=== PATIENT | male | born 1950 | race Caucasian/White ===

== ENCOUNTER → 2020-03-09 08:07 | Outpatient (BNVA) | payer OTHER, SELFPAY | PROVIDERS: Family Provider Internal Medicine; PCP Internal Medicine; Visit Provider Psychiatry & Neurology Psychiatry | DX: F43.23 Adjustment disorder with mixed anxiety and depressed mood (principal) | CPT/HCPCS: 99204 ==

== ENCOUNTER → 2020-03-18 10:20 | Outpatient (BNVA) | payer OTHER, SELFPAY | PROVIDERS: Family Provider Internal Medicine; PCP Internal Medicine; Visit Provider Specialist | DX: G62.9 Polyneuropathy, unspecified (principal); G25.0 Essential tremor; G56.23 Lesion of ulnar nerve, bilateral upper limbs | CPT/HCPCS: 99215 ==

== ENCOUNTER → 2020-07-01 09:41 | Outpatient (BNVA) | payer OTHER, SELFPAY | PROVIDERS: Family Provider Internal Medicine; PCP Internal Medicine; Visit Provider Specialist | DX: G25.0 Essential tremor (principal); G56.23 Lesion of ulnar nerve, bilateral upper limbs; G62.9 Polyneuropathy, unspecified | CPT/HCPCS: 99213 ==

== ENCOUNTER → 2021-06-29 09:07 | Outpatient (BNVA) | payer OTHER, SELFPAY | PROVIDERS: Family Provider Internal Medicine; PCP Family Medicine; Visit Provider Specialist | DX: G25.0 Essential tremor (principal); F30.8 Other manic episodes | CPT/HCPCS: 99213; 99214 ==

== ENCOUNTER → 2021-12-28 09:19 | Outpatient (BNVA) | payer OTHER, SELFPAY | PROVIDERS: Family Provider Internal Medicine; PCP Family Medicine; Visit Provider Specialist | DX: G25.0 Essential tremor (principal); G56.23 Lesion of ulnar nerve, bilateral upper limbs; M62.549 Muscle wasting and atrophy, not elsewhere classified, unspecified hand; F43.23 Adjustment disorder with mixed anxiety and depressed mood; Z87.891 Personal history of nicotine dependence | CPT/HCPCS: 99213; 99214 ==

== ENCOUNTER → 2022-02-16 10:31 | Outpatient (BNVA) | payer OTHER, SELFPAY | PROVIDERS: Family Provider Internal Medicine; PCP Family Medicine; Referring Provider Specialist; Visit Provider Specialist | DX: G56.23 Lesion of ulnar nerve, bilateral upper limbs (principal); G56.03 Carpal tunnel syndrome, bilateral upper limbs; Z87.891 Personal history of nicotine dependence | CPT/HCPCS: 95910 ==

== ENCOUNTER → 2022-03-30 14:35 | Outpatient (BNVA) | payer OTHER, SELFPAY | PROVIDERS: Family Provider Internal Medicine; PCP Family Medicine; Referring Provider Specialist; Visit Provider Orthopaedic Surgery | DX: M19.031 Primary osteoarthritis, right wrist (principal); M19.032 Primary osteoarthritis, left wrist; G56.03 Carpal tunnel syndrome, bilateral upper limbs; Z87.891 Personal history of nicotine dependence | CPT/HCPCS: 73100; 99203 ==

== ENCOUNTER → 2022-07-04 10:58 | Outpatient (BNVA) | payer OTHER, SELFPAY | PROVIDERS: Family Provider Internal Medicine; PCP Family Medicine; Visit Provider Specialist | DX: G25.0 Essential tremor (principal); M19.031 Primary osteoarthritis, right wrist; M19.032 Primary osteoarthritis, left wrist; G56.03 Carpal tunnel syndrome, bilateral upper limbs; F43.23 Adjustment disorder with mixed anxiety and depressed mood | CPT/HCPCS: 99213; 99214 ==

== ENCOUNTER → 2022-07-13 10:06 | Outpatient (BNVA) | payer OTHER, SELFPAY | PROVIDERS: Family Provider Internal Medicine; PCP Family Medicine; Referring Provider Specialist; Visit Provider Orthopaedic Surgery | DX: M19.031 Primary osteoarthritis, right wrist (principal); M19.032 Primary osteoarthritis, left wrist; G56.03 Carpal tunnel syndrome, bilateral upper limbs | CPT/HCPCS: 20526; 99213 ==

== ENCOUNTER → 2022-07-27 08:53 | Outpatient (BNVA) | payer OTHER, SELFPAY | PROVIDERS: Family Provider Internal Medicine; PCP Family Medicine; Visit Provider Orthopaedic Surgery | DX: G56.03 Carpal tunnel syndrome, bilateral upper limbs (principal) | CPT/HCPCS: 99213 ==

== ENCOUNTER → 2022-10-03 15:15 | Outpatient (BNVA) | payer OTHER, SELFPAY | PROVIDERS: Family Provider Internal Medicine; PCP Family Medicine; Visit Provider Specialist | DX: G25.0 Essential tremor (principal); G56.03 Carpal tunnel syndrome, bilateral upper limbs; G62.9 Polyneuropathy, unspecified | CPT/HCPCS: 99214 ==

== ENCOUNTER → 2023-04-04 14:46 | Outpatient (BNVA) | payer OTHER, SELFPAY | PROVIDERS: Family Provider Internal Medicine; PCP Family Medicine; Visit Provider Specialist | DX: G25.0 Essential tremor (principal); G62.9 Polyneuropathy, unspecified; F43.23 Adjustment disorder with mixed anxiety and depressed mood; R26.89 Other abnormalities of gait and mobility | CPT/HCPCS: 99213 ==

== ENCOUNTER → 2023-09-25 09:43 | Outpatient (BNVA) | payer OTHER, SELFPAY | PROVIDERS: Family Provider Internal Medicine; PCP Family Medicine; Visit Provider Podiatrist Foot & Ankle Surgery | DX: G62.89 Other specified polyneuropathies; L60.3 Nail dystrophy; M76.821 Posterior tibial tendinitis, right leg; M20.41 Other hammer toe(s) (acquired), right foot; M20.42 Other hammer toe(s) (acquired), left foot | CPT/HCPCS: 11721; 73630; 99203 ==

== ENCOUNTER → 2023-10-26 09:21 | Outpatient (BNVA) | payer OTHER, SELFPAY | PROVIDERS: Family Provider Internal Medicine; PCP Family Medicine; Visit Provider Podiatrist Foot & Ankle Surgery | DX: L60.3 Nail dystrophy (principal); L60.0 Ingrowing nail | CPT/HCPCS: 11750 ==

== ENCOUNTER → 2023-11-09 08:56 | Outpatient (BNVA) | payer OTHER, SELFPAY | PROVIDERS: Family Provider Internal Medicine; PCP Family Medicine; Visit Provider Podiatrist Foot & Ankle Surgery | DX: L60.3 Nail dystrophy (principal); L60.0 Ingrowing nail | CPT/HCPCS: 11750 ==

== ENCOUNTER → 2023-11-30 09:40 | Outpatient (BNVA) | payer OTHER, SELFPAY | PROVIDERS: Family Provider Internal Medicine; PCP Family Medicine; Visit Provider Podiatrist Foot & Ankle Surgery | DX: L60.0 Ingrowing nail (principal) | CPT/HCPCS: 11750 ==

== ENCOUNTER → 2023-12-21 10:07 | Outpatient (BNVA) | payer OTHER, SELFPAY | PROVIDERS: Family Provider Internal Medicine; PCP Family Medicine; Visit Provider Podiatrist Foot & Ankle Surgery | DX: Z98.890 Other specified postprocedural states (principal) | CPT/HCPCS: 99213 ==

== ENCOUNTER → 2024-01-08 12:57 | Outpatient (BNVA) | payer OTHER, SELFPAY | PROVIDERS: Family Provider Internal Medicine; PCP Family Medicine; Visit Provider Dermatology | DX: D48.5 Neoplasm of uncertain behavior of skin (principal); L82.0 Inflamed seborrheic keratosis; L91.8 Other hypertrophic disorders of the skin; L82.1 Other seborrheic keratosis; D22.5 Melanocytic nevi of trunk; D22.39 Melanocytic nevi of other parts of face; L81.4 Other melanin hyperpigmentation | CPT/HCPCS: 11102; 11200; 17110; 99203 ==

== ENCOUNTER → 2024-01-29 09:07 | Outpatient (BNVA) | payer OTHER, SELFPAY | PROVIDERS: Family Provider Internal Medicine; PCP Family Medicine; Visit Provider Dermatology | DX: L91.8 Other hypertrophic disorders of the skin (principal); L82.0 Inflamed seborrheic keratosis; C44.319 Basal cell carcinoma of skin of other parts of face; L81.8 Other specified disorders of pigmentation | CPT/HCPCS: 12051; 17311; 99213 ==

== ENCOUNTER → 2024-02-26 13:40 | Outpatient (BNVA) | payer OTHER, SELFPAY | PROVIDERS: Family Provider Internal Medicine; PCP Family Medicine; Visit Provider Dermatology | DX: D48.5 Neoplasm of uncertain behavior of skin (principal); L82.0 Inflamed seborrheic keratosis; L21.8 Other seborrheic dermatitis; L72.0 Epidermal cyst; Z85.828 Personal history of other malignant neoplasm of skin | CPT/HCPCS: 11104; 17110; 99214 ==

== ENCOUNTER → 2024-03-07 12:45 | Outpatient (BNVA) | payer OTHER, SELFPAY | PROVIDERS: Family Provider Internal Medicine; PCP Family Medicine; Visit Provider Dermatology | DX: Z48.02 Encounter for removal of sutures (principal) | CPT/HCPCS: 99212 ==

== ENCOUNTER → 2024-04-02 12:02 | Outpatient (BNVA) | payer OTHER, SELFPAY | PROVIDERS: Family Provider Internal Medicine; PCP Family Medicine; Visit Provider Specialist | DX: R29.90 Unspecified symptoms and signs involving the nervous system (principal); G25.0 Essential tremor | CPT/HCPCS: 99213 ==

== ENCOUNTER → 2024-09-10 09:07 | Outpatient (BNVA) | payer OTHER, SELFPAY | PROVIDERS: Family Provider Internal Medicine; PCP Family Medicine; Visit Provider Nurse Practitioner Family | DX: L21.8 Other seborrheic dermatitis (principal); L82.1 Other seborrheic keratosis; L81.4 Other melanin hyperpigmentation; D22.39 Melanocytic nevi of other parts of face; Z85.828 Personal history of other malignant neoplasm of skin | CPT/HCPCS: 99214 ==